=== PATIENT | female | born 1995 | race Caucasian/White ===

== ENCOUNTER 2017-08-29 18:10 | Emergency (ER) | payer OTHER ==
[2017-08-29 18:24] VITALS: BP 117/60
--- NOTE | 2017-08-29 19:36 | RADIOLOGY REPORT (SQ) ---
EXAM DESCRIPTION: HIP LEFT AP/LATERAL COMPLETED DATE/TIME: 08/29/2017 7:25 pm REASON FOR STUDY: Left hip pain, h/o prev surgery COMPARISON: None. NUMBER OF VIEWS: Two views. TECHNIQUE: AP pelvis and additional frog-leg view of the left hip. LIMITATIONS: None. FINDINGS: MINERALIZATION: Normal. LEFT HIP: No fracture or dislocation. No worrisome bone lesions. No contour deformity. No joint spa ce narrowing. RIGHT HIP: No fracture or dislocation. No worrisome bone lesions. PUBIS AND ISCHIUM: No fracture. PELVIS: No fracture. SACRUM: No fracture or dislocation. No worrisome bone lesions. LOWER LUMBAR SPINE: No fracture or dislocation. No worrisome bone lesions. No significant disc disea se. SOFT TISSUES: No findings. OTHER: No other significant finding. IMPRESSION: NEGATIVE STUDY OF THE LEFT HIP AND PELVIS. NO EXPLANATION FOR PAIN. TECHNICAL DOCUMENTATION: JOB ID: [id number] [employer]- All Rights Reserved
--- NOTE | 2017-08-29 19:49 | ER Document Report ---
HPI - HPI Pain Level: 4 Notes: Patient is a 22-year-old female with a history of hip flexor tendon surgery October 2016 who presents to the ED complaining of increased pain since June. Patient states that she was on limited duty until June when she went to full duty which is causing an increase in her pain. Patient has not noticed any bruising or swelling. She denies any recent injury. Patient states that any activity increases her pain. She has been using some hkkn-lgy-drqugil meds with minimal relief. She is still ambulatory. She is eating and drinking without difficulties. She is urinating normally and having normal bowel movements. Patient has not noticed any vaginal discharge/odor/bleeding. She denies any . Patient states that most of the pain is to the lateral hip proximally. No other concerns or complaints at this time. Denies any headache, fever, neck pain, URI, sore throat, chest pain, palpitations, syncope , cough, shortness of breath, wheeze, dyspnea, abdominal pain, nausea/vomiting/ diarrhea, urinary retention, dysuria, hematuria, back pain, loss of control of bowel or bladder, numbness/tingling, saddle anesthesia, muscle paralysis/ weakness, or rash. - ROS Systems Reviewed and Negative: Yes All other systems reviewed and negative Past Medical History - Social History Smoking Status: Never Smoker Family History: Reviewed & Not Pertinent Vertical Provider Document - CONSTITUTIONAL Agree With Documented VS: Yes Notes: PHYSICAL EXAMINATION: GENERAL: Well-appearing, well-nourished and in no acute distress. LUNGS: Breath sounds clear to auscultation bilaterally and equal. No wheezes rales or rhonchi. HEART: Regular rate and rhythm without murmurs, rubs, gallops. ABDOMEN: Soft, nontender, nondistended abdomen. No guarding, no rebound. No masses appreciated. Normal bowel sounds present. No CVA tenderness bilaterally. No pulsatile mass Musculoskeletal: LE's b/l: FROM to passive/active. Strength 5+/5. No deficits noted. No bony tenderness of extremities. + mild tenderness to the soft tissue hip flexor/abductor origin. No ecchymosis, deformity, erythema. Back: FROM to passive/active. Strength 5+/5. No vertebral point tenderness, stepoffs, or deformities. No other bony tenderness, erythema, swelling, or ecchymosis. SLR negative b/l. No SI jt tenderness. No foot drop Extremities: No cyanosis, clubbing, or edema b/l. Peripheral pulses 2+. Capillary refill less than 2 seconds. NEUROLOGICAL: Normal speech, normal gait. Normal sensory, motor exams. Reflexes 2+ b/l. PSYCH: Normal mood, normal affect. SKIN: Warm, Dry, normal turgor, no rashes or lesions noted. - INFECTION CONTROL TRAVEL OUTSIDE OF THE [place] IN LAST 30 DAYS: No - RESPIRATORY O2 Sat by Pulse Oximetry: 100 Course - Re-evaluation Re-evalutation: 08/29/17 19:47 Patient is an afebrile, well-hydrated, 22-year-old female who presents the ED with left hip pain, suspect muscle strain versus sprain. Vitals are stable. PE is otherwise unremarkable for any neurovascular compromise, obvious tendon/ ligament rupture, obvious fracture/dislocation, septic joint. X-ray was unremarkable for any acute pathology. Toradol given IM today. Recommend conservative measures for symptoms. Recheck with your PCM in 3-5 days. Consider consult with orthopedics/physical therapy. I will send her home with a prescription for naproxen and baclofen. Return to the ED with any worsening/ concerning symptoms otherwise as reviewed discharge. Patient is in agreement. - Vital Signs Vital signs: Temp Pulse Resp BP Pulse Ox 98.5 F 82 16 117/60 100 08/29/17 18:23 08/29/17 18:23 08/29/17 18:23 08/29/17 18:23 08/29/17 18:23 Discharge - Discharge Clinical Impression: Left hip pain Condition: Stable Disposition: HOME, SELF-CARE Instructions: Muscle Strain ([facility]), Muscle Relaxers ([facility]) Additional Instructions: Rest, Ice, Compression, Elevation Tylenol/ibuprofen as needed Light stretches daily Strength exercises as able Moist heat and massage may help F/u with your PCP in 3-5 days for a recheck Consider consult(s) with Orthopedics/physical therapy for ongoing/worsening symptoms Return to the ED with any worsening symptoms and/or development of fever, headache, chest pain, palpitations, syncope, shortness of breath, trouble breathing, abdominal pain, n/v/d, muscle weakness/paralysis, numbness/tingling, swelling, redness, or other worsening symptoms that are concerning to you. Prescriptions: Baclofen [Baclofen 10 mg Tablet] 5 - 10 mg PO BID PRN #10 tablet PRN Reason: Naproxen 500 mg PO BID PRN #30 tablet PRN Reason: Referrals: [facility] [Provider Group] - Follow up as needed
[2017-08-29] MEDS ORDERED: KETOROLAC TROMETHAMINE INJ/PF 30 MG/1 ML SDV IM ONE (19:50)
== END 2017-08-29 20:12 | disposition home or self-care (01) ==
LOC: ER 18:10
DX: M25.552 Pain in left hip (principal); Z98.890 Other specified postprocedural states
CPT/HCPCS: 99283; 96372; 73502; J1885

== ENCOUNTER 2018-01-30 19:19 | Emergency (ER) | payer OTHER ==
[2018-01-30] MEDS ORDERED: ONDANSETRON 4 MG TAB.RAPDIS PO ONE (19:36)
[2018-01-30] MEDS ORDERED: NORMAL SALINE 1000 ML 1,000 ML IV ONE ×2 (19:36→21:32)
--- NOTE | 2018-01-30 19:38 | ER Document Report ---
ED Medical Screen (RME) - General Chief Complaint: Nausea/Vomiting Stated Complaint: VOMITING Time Seen by Provider: 01/30/18 19:35 Mode of Arrival: Wheelchair Information source: Patient TRAVEL OUTSIDE OF THE [place] IN LAST 30 DAYS: No - HPI Patient complains to provider of: vomiting Onset: Other - pt is G1 approx 9 weeks who was recently released from [facility] for hyperemesis. Staters she has continued to vomit since d/c - Related Data Allergies/Adverse Reactions: amoxicillin Allergy (Verified 08/29/17 18:10) Past Medical History Renal/ Medical History: Denies: Hx Peritoneal Dialysis Past Surgical History: Reports: Hx Tonsillectomy Physical Exam - Vital signs Vitals: Temp Pulse Resp BP Pulse Ox 99.1 F 96 20 119/59 L 100 01/30/18 19:27 01/30/18 19:27 01/30/18 19:27 01/30/18 19:27 01/30/18 19:27 Course - Vital Signs Vital signs: Temp Pulse Resp BP Pulse Ox 99.1 F 96 20 119/59 L 100 01/30/18 19:27 01/30/18 19:27 01/30/18 19:27 01/30/18 19:27 01/30/18 19:27
[2018-01-30 20:16] LABS: ABSOLUTE LYMPHOCYTES (AUTO) 0.9 10^3/uL (0.5-4.7); ABSOLUTE MONOCYTES (AUTO) 0.4 10^3/uL (0.1-1.4); ABSOLUTE NEUT (AUTO) 12.2 10^3/uL (1.7-8.2); BASOPHILS % (AUTO) 0.3 % (0-2); EOSINOPHILS % (AUTO) 0.3 % (0-6); HEMATOCRIT 45.4 % (36.0-47.0); HEMOGLOBIN 15.2 g/dL (12.0-15.5); LYMPHOCYTES % (AUTO) 6.7 % (13-45); MEAN CORPUSCULAR HEMOGLOBIN 27.8 pg (27.0-33.4); MEAN CORPUSCULAR HGB CONC 33.6 g/dL (32.0-36.0); MEAN CORPUSCULAR VOLUME 83 fl (80-97); MONOCYTES % (AUTO) 3.2 % (3-13); PLATELET COUNT 283 10^3/uL (150-450); RED BLOOD COUNT 5.48 10^6/uL (3.72-5.28); RED CELL DISTRIBUTION WIDTH 13.7 % (11.5-14.0); SEGMENTED NEUTROPHILS % (AUTO) 89.5 % (42-78); TOTAL CELLS COUNTED % (AUTO) 100 %; WHITE BLOOD COUNT 13.6 10^3/uL (4.0-10.5)
[2018-01-30 20:26] LABS: ALANINE AMINOTRANSFERASE 29 U/L (9-52); ALBUMIN 4.7 g/dL (3.5-5.0); ALKALINE PHOSPHATASE 57 U/L (38-126); ANION GAP 16 (5-19); ASPARTATE AMINO TRANSFERASE 28 U/L (14-36); BILIRUBIN,DIRECT 0.3 mg/dL (0.0-0.4); BILIRUBIN,TOTAL 0.9 mg/dL (0.2-1.3); BLOOD UREA NITROGEN 10 mg/dL (7-20); CARBON DIOXIDE 23 mmol/L (22-30); CHLORIDE 101 mmol/L (98-107); GLUCOSE 83 mg/dL (75-110); POTASSIUM 4.4 mmol/L (3.6-5.0); SODIUM 139.9 mmol/L (137-145); TOTAL PROTEIN 8.3 g/dL (6.3-8.2)
[2018-01-30 21:22] LABS: APPEARANCE,URINE SLIGHTLY-CLOUDY; BILIRUBIN,URINE NEGATIVE (NEGATIVE); COLOR,URINE YELLOW; GLUCOSE, URINE NEGATIVE (NEGATIVE); KETONES,URINE 80 mg/dL (NEGATIVE); LEUKOCYTE ESTERASE,URINE NEGATIVE (NEGATIVE); NITRITE,URINE NEGATIVE (NEGATIVE); PROTEIN,URINE 100 mg/dL (NEGATIVE)
--- NOTE | 2018-01-30 21:41 | ER Document Report ---
ED General - General Chief Complaint: Nausea/Vomiting Stated Complaint: VOMITING Time Seen by Provider: 01/30/18 19:35 Mode of Arrival: Wheelchair Information source: Patient Notes: Patient is a 22-year-old female who presents with chief complaint of nausea and vomiting. Patient reports that she is 9 weeks and has been previously diagnosed with hyperemesis. Patient reports that she was discharged from a 3 day hospitalization at [facility] 2 days ago. Patient reports that her vomiting had subsided until this morning she reports vomiting 15-20 times today. Patient denies any other complaints, no vaginal bleeding or discharge no abdominal pain no back pain. Patient has not vomited since arrival to the emergency department and administration of 4 mg ODT Zofran. TRAVEL OUTSIDE OF THE [place] IN LAST 30 DAYS: No - Related Data Allergies/Adverse Reactions: amoxicillin Allergy (Verified 08/29/17 18:10) Past Medical History - General Information source: Patient - Social History Smoking Status: Never Smoker Chew tobacco use (# tins/day): No Frequency of alcohol use: None Drug Abuse: None Family History: Reviewed & Not Pertinent Patient has suicidal ideation: No Patient has homicidal ideation: No - Medical History Medical History: Negative Renal/ Medical History: Denies: Hx Peritoneal Dialysis Past Surgical History: Reports: Hx Tonsillectomy - Immunizations Immunizations up to date: Yes Hx Diphtheria, Pertussis, Tetanus Vaccination: Yes Review of Systems - Review of Systems Constitutional: No symptoms reported EENT: No symptoms reported Cardiovascular: No symptoms reported Respiratory: No symptoms reported Gastrointestinal: See HPI Genitourinary: No symptoms reported Female Genitourinary: No symptoms reported Musculoskeletal: No symptoms reported Skin: No symptoms reported Hematologic/Lymphatic: No symptoms reported Neurological/Psychological: No symptoms reported Physical Exam - Vital signs Vitals: Temp Pulse Resp BP Pulse Ox 99.1 F 96 20 119/59 L 100 01/30/18 19:27 01/30/18 19:27 01/30/18 19:27 01/30/18 19:27 01/30/18 19:27 - Notes Notes: PHYSICAL EXAMINATION: GENERAL: Well-appearing, well-nourished and in no acute distress. HEAD: Atraumatic, normocephalic. EYES: Pupils equal round and reactive to light, extraocular movements intact, conjunctiva are normal. ENT: Nares patent, oropharynx clear without exudates. Moist mucous membranes. NECK: Normal range of motion, supple without lymphadenopathy LUNGS: Breath sounds clear to auscultation bilaterally and equal. No wheezes rales or rhonchi. HEART: Regular rate and rhythm without murmurs ABDOMEN: Soft, nontender, nondistended abdomen. No guarding, no rebound. No masses appreciated. Female : No CVA tenderness. Musculoskeletal: Normal range of motion, no pitting or edema. No cyanosis. NEUROLOGICAL: Cranial nerves grossly intact. Normal speech, normal gait. Normal sensory, motor exams PSYCH: Normal mood, normal affect. SKIN: Warm, Dry, normal turgor, no rashes or lesions noted. Course - Re-evaluation Re-evalutation: Patient is an otherwise healthy 22-year-old female who presents with chief complaint of nausea and vomiting. Patient is 9 weeks according to her dates and reports that she has been diagnosed with hyperemesis gravidarum. Patient was initially seen by provider in triage who provided patient with 4 mg ODT Zofran, 1 L normal saline bolus and ordered lab work. CBC reveals a white blood count 13.6 with a left shift, neutrophils are 89.5, this is consistent with her complaint of multiple episodes of vomiting today. CMP is within normal limits. Urinalysis with ketones and protein. Will order an additional 1 L bolus. Patient reports that she is feeling somewhat better after the 2 L of normal saline. Patient has not vomited since arrival to the department. Patient will be discharged home with a prescription for Phenergan suppositories. Patient will have follow-up with her DRAMA THERAPIST early next week. - Vital Signs Vital signs: Temp Pulse Resp BP Pulse Ox 99.1 F 96 20 119/59 L 100 01/30/18 19:27 01/30/18 19:27 01/30/18 19:27 01/30/18 19:27 01/30/18 19:27 - Laboratory Result Diagrams: 01/30/18 19:55 01/30/18 19:55 Laboratory results interpreted by me: 01/30/18 01/30/18 01/30/18 19:55 19:55 20:04 WBC 13.6 H RBC 5.48 H Seg Neutrophils % 89.5 H Lymphocytes % 6.7 L Absolute Neutrophils 12.2 H Total Protein 8.3 H Beta HCG, Quant 079906.00 H Urine Protein 100 H Urine Ketones 80 H Urine Urobilinogen 2.0 H Discharge - Discharge Clinical Impression: Vomiting Qualifiers: Vomiting type: unspecified Vomiting Intractability: unspecified Nausea presence : with nausea Qualified Code(s): R11.2 - Nausea with vomiting, unspecified Additional Instructions: Hyperemesis Gravidarum Hyperemesis gravidarum is the medical term for severe vomiting during . We don't know exactly why it occurs, but it's a common problem. Dehydration can occur. This reduces blood flow to the placenta, decreasing the baby's nourishment. The baby will also become dehydrated. There can be harmful changes in blood sodium, potassium, or acid balance. Our goal is to correct, and prevent, dehydration. For severe cases, we give IV fluids. Antinausea medication will be prescribed. (Don't be concerned about " defects" -- the risk to you and your baby from the hyperemesis is the biggest problem. The antinausea medication is very safe at this stage of .) Call the doctor if you have vaginal bleeding, abdominal pain, severe lightheadedness or weakness, or other alarming symptoms. Please follow-up with your DRAMA THERAPIST provider, call Friday for an appointment. Please take medications as prescribed. Return to the emergency department if you are unable to control your vomiting with the medications that you have at home (zofran) or the Phenergan suppositories I am prescribing to you. Prescriptions: Promethazine HCl [Phenergan 25 mg Supp.rect] 1 supp NE Q6H #12 supp.rect
[2018-01-30] MEDS ORDERED: PROMETHAZINE HCL 25 MG SUPP.RECT PR ONE (23:43)
[2018-01-31 03:30] VITALS: BP 108/59
== END 2018-01-31 00:07 | disposition home or self-care (01) ==
LOC: ER 19:19
DX: O21.0 Mild hyperemesis gravidarum (principal); Z3A.09 9 weeks gestation of pregnancy
CPT/HCPCS: 99283; 96360; 96361; 36415; 84702; 85025; 80053; 81001; S0119; J3490; J7030

== ENCOUNTER 2018-02-04 16:17 | Emergency (ER) | payer OTHER ==
[2018-02-04] MEDS ORDERED: ONDANSETRON 4 MG TAB.RAPDIS SL ONE (17:43)
[2018-02-04] MEDS ORDERED: FAMOTIDINE 20 MG TABLET PO ONE (17:44)
[2018-02-04] MEDS ORDERED: NORMAL SALINE 1000 ML 1,000 ML IV ONE ×2 (17:44→18:32)
[2018-02-04] MEDS ORDERED: METOCLOPRAMIDE HCL INJ/PF 10 MG/2 ML SDV IV ONE (17:44)
--- NOTE | 2018-02-04 17:49 | ER Document Report ---
ED Medical Screen (RME) - General Chief Complaint: Nausea/Vomiting Stated Complaint: VOMITING BLOOD Time Seen by Provider: 02/04/18 17:34 TRAVEL OUTSIDE OF THE [place] IN LAST 30 DAYS: No - HPI Patient complains to provider of: Nausea and vomiting Notes: 02/04/18 17:48 Patient is a 22-year-old female who is currently approximately 10 weeks , presenting to the emergency room for nausea and vomiting with epigastric abdominal pain that has been going on over the past 7 weeks, states she vomited up a small amount of blood today as well - Related Data Allergies/Adverse Reactions: amoxicillin Allergy (Verified 02/04/18 16:24) Past Medical History - Social History Chew tobacco use (# tins/day): No Frequency of alcohol use: None Drug Abuse: None Renal/ Medical History: Denies: Hx Peritoneal Dialysis Past Surgical History: Reports: Hx Orthopedic Surgery - right arm, left hip, Hx Tonsillectomy - Immunizations Immunizations up to date: Yes Hx Diphtheria, Pertussis, Tetanus Vaccination: Yes Physical Exam - Vital signs Vitals: Temp Pulse Resp BP Pulse Ox 98.3 F 95 16 117/77 100 02/04/18 16:32 02/04/18 16:32 02/04/18 16:32 02/04/18 16:32 02/04/18 16:32 Course - Vital Signs Vital signs: Temp Pulse Resp BP Pulse Ox 98.3 F 95 16 117/77 100 02/04/18 16:32 02/04/18 16:32 02/04/18 16:32 02/04/18 16:32 02/04/18 16:32
[2018-02-04 18:23] LABS: HEMATOCRIT 46.2 % (36.0-47.0); HEMOGLOBIN 15.9 g/dL (12.0-15.5); MEAN CORPUSCULAR HEMOGLOBIN 28.8 pg (27.0-33.4); MEAN CORPUSCULAR HGB CONC 34.4 g/dL (32.0-36.0); MEAN CORPUSCULAR VOLUME 84 fl (80-97); PLATELET COUNT 326 10^3/uL (150-450); RED BLOOD COUNT 5.52 10^6/uL (3.72-5.28); RED CELL DISTRIBUTION WIDTH 13.9 % (11.5-14.0); WHITE BLOOD COUNT 20.2 10^3/uL (4.0-10.5)
[2018-02-04 18:26] LABS: INTERNATIONAL RATION (INR) 0.96; PROTHROMBIN TIME 13.3 SEC (11.4-15.4)
[2018-02-04 18:27] LABS: PARTIAL THROMBOPLASTIN TIME 27.5 SEC (23.5-35.8)
[2018-02-04 18:39] LABS: ALANINE AMINOTRANSFERASE 22 U/L (9-52); ALBUMIN 4.9 g/dL (3.5-5.0); ALKALINE PHOSPHATASE 70 U/L (38-126); ASPARTATE AMINO TRANSFERASE 20 U/L (14-36); BILIRUBIN,DIRECT 0.4 mg/dL (0.0-0.4); BILIRUBIN,TOTAL 1.1 mg/dL (0.2-1.3); BLOOD UREA NITROGEN 14 mg/dL (7-20); CALCIUM 10.1 mg/dL (8.4-10.2); GLUCOSE 88 mg/dL (75-110); LIPASE 80.4 U/L (23-300); POTASSIUM 4.2 mmol/L (3.6-5.0); TOTAL PROTEIN 8.5 g/dL (6.3-8.2)
[2018-02-04 18:44] LABS: CARBON DIOXIDE 15 mmol/L (22-30); CHLORIDE 102 mmol/L (98-107); SODIUM 141.1 mmol/L (137-145)
[2018-02-04 18:46] LABS: ANION GAP 24 (5-19)
[2018-02-04 19:03] LABS: ABSOLUTE LYMPHOCYTES# (MANUAL) 0.2 10^3/uL (0.5-4.7); ABSOLUTE MONOCYTES # (MANUAL) 0.6 10^3/uL (0.1-1.4); ABSOLUTE NEUTROPHILS# (MANUAL) 19.4 10^3/uL (1.7-8.2); BASOPHILS % (MANUAL) 0 % (0-2); EOSINOPHILS % (MANUAL) 0 % (0-6); LYMPHOCYTES % (MANUAL) 1 % (13-45); MONOCYTES % (MANUAL) 3 % (3-13); SEGMENTED NEUTROPHILS % (MAN) 96 % (42-78); TOTAL CELLS COUNTED 100
[2018-02-04 19:06] LABS: PLATELET COMMENT ADEQUATE; PLATELET LARGE PRESENT
[2018-02-04 19:07] LABS: POIKILOCYTOSIS SLIGHT; TEAR DROP CELLS SLIGHT
[2018-02-04 20:19] LABS: APPEARANCE,URINE CLEAR; BILIRUBIN,URINE NEGATIVE (NEGATIVE); COLOR,URINE YELLOW; GLUCOSE, URINE NEGATIVE (NEGATIVE); KETONES,URINE 80 mg/dL (NEGATIVE); LEUKOCYTE ESTERASE,URINE NEGATIVE (NEGATIVE); NITRITE,URINE NEGATIVE (NEGATIVE); PROTEIN,URINE 30 mg/dL (NEGATIVE); URINE SPECIFIC GRAVITY 1.025; UROBILINOGEN,URINE NEGATIVE mg/dL (<2.0)
[2018-02-04 20:30] LABS: URINE AMPHETAMINES SCREEN NEGATIVE; URINE BARBITURATES SCREEN NEGATIVE; URINE BENZODIAZEPINES SCREEN NEGATIVE; URINE COCAINE SCREEN NEGATIVE; URINE MARIJUANA (THC) SCREEN NEGATIVE; URINE METHADONE SCREEN NEGATIVE; URINE PHENCYCLIDINE SCREEN NEGATIVE
[2018-02-04] MEDS ORDERED: DIPHENHYDRAMINE HCL 50 MG/ML VIAL IV ONE (21:08)
--- NOTE | 2018-02-04 22:46 | ER Document Report ---
ED General - General Chief Complaint: Nausea/Vomiting Stated Complaint: VOMITING BLOOD Time Seen by Provider: 02/04/18 17:34 TRAVEL OUTSIDE OF THE [place] IN LAST 30 DAYS: No - HPI Patient complains to provider of: Nausea vomiting Notes: Patient coming in today for nausea vomiting . Patient is a states multiple bouts of nausea vomiting unable to hold anything down. Patient states small amount of blood and her emesis last time she vomited. Patient with a recent admission to [facility] for hyperemesis gravidarum. Patient states she has continued to take medications prescribed to her by her OB /GENERATOR OPERATOR including but not limited to the Phenergan Unisom and B6 t Reglan with no relief for her symptoms today. Patient upon my evaluation resting comfortably looks mildly dehydrated otherwise no signs of any extremis. Patient denies any bleeding denies any abdominal pain or abdominal cramping. Denies any other past medical issues. - Related Data Allergies/Adverse Reactions: amoxicillin Allergy (Verified 02/04/18 16:24) Past Medical History - Social History Smoking Status: Unknown if Ever Smoked Chew tobacco use (# tins/day): No Frequency of alcohol use: None Drug Abuse: None Family History: Reviewed & Not Pertinent Patient has suicidal ideation: No Patient has homicidal ideation: No Renal/ Medical History: Denies: Hx Peritoneal Dialysis Past Surgical History: Reports: Hx Orthopedic Surgery - right arm, left hip, Hx Tonsillectomy - Immunizations Immunizations up to date: Yes Hx Diphtheria, Pertussis, Tetanus Vaccination: Yes Review of Systems - Review of Systems Constitutional: No symptoms reported EENT: No symptoms reported Cardiovascular: No symptoms reported Respiratory: No symptoms reported Gastrointestinal: Nausea, Vomiting Genitourinary: No symptoms reported Female Genitourinary: No symptoms reported Musculoskeletal: No symptoms reported Skin: No symptoms reported Hematologic/Lymphatic: No symptoms reported Neurological/Psychological: No symptoms reported -: Yes All other systems reviewed and negative Physical Exam - Vital signs Vitals: Temp Pulse Resp BP Pulse Ox 98.3 F 95 16 117/77 100 02/04/18 16:32 02/04/18 16:32 02/04/18 16:32 02/04/18 16:32 02/04/18 16:32 Interpretation: Normal - General General appearance: Appears well, Alert - HEENT Head: Normocephalic, Atraumatic Eyes: Normal Pupils: PERRL - Respiratory Respiratory status: No respiratory distress Chest status: Nontender Breath sounds: Normal Chest palpation: Normal - Cardiovascular Rhythm: Regular Heart sounds: Normal auscultation Murmur: No - Abdominal Inspection: Normal Distension: No distension Bowel sounds: Normal Tenderness: Nontender Organomegaly: No organomegaly - Back Back: Normal, Nontender - Extremities General upper extremity: Normal inspection, Nontender, Normal color, Normal ROM , Normal temperature General lower extremity: Normal inspection, Nontender, Normal color, Normal ROM , Normal temperature, Normal weight bearing. No: Ron's sign - Neurological Neuro grossly intact: Yes Cognition: Normal Orientation: AAOx4 [place] Coma Scale Eye Opening: Spontaneous [place] Coma Scale Verbal: Oriented [place] Coma Scale Motor: Obeys Commands [place] Coma Scale Total: 15 Speech: Normal Motor strength normal: LUE, RUE, LLE, RLE Sensory: Normal - Psychological Associated symptoms: Normal affect, Normal mood - Skin Skin Temperature: Warm Skin Moisture: Dry Skin Color: Normal Course - Re-evaluation Re-evalutation: 02/04/18 23:29 Bedside ultrasound shows heart tones at 167. With positive motion. Patient was given antiemetics here along with a small dose of Benadryl and able to tolerate crackers and ice chips along with some fluids. Laboratories show significant dehydration patient received 2 L of fluid total. Otherwise patient was given education material in her discharge packet about different medications and ways to treat nausea vomiting in . At this time with patient tolerating orals do believe that she can be discharged home. - Vital Signs Vital signs: Temp Pulse Resp BP Pulse Ox 98.3 F 95 19 99/72 L 100 02/04/18 16:32 02/04/18 16:32 02/04/18 23:08 02/04/18 23:08 02/04/18 23:08 - Laboratory Result Diagrams: 02/04/18 18:00 02/04/18 18:00 Laboratory results interpreted by me: 02/04/18 02/04/18 02/04/18 17:18 18:00 18:00 WBC 20.2 H RBC 5.52 H Hgb 15.9 H Seg Neuts % (Manual) 96 H Lymphocytes % (Manual) 1 L Abs Neuts (Manual) 19.4 H Abs Lymphs (Manual) 0.2 L Carbon Dioxide 15 L Anion Gap 24 H Total Protein 8.5 H Urine Protein 30 H Urine Ketones 80 H Urine HCG, Qual POSITIVE H Discharge - Discharge Clinical Impression: Nausea and vomiting during , Dehydration Condition: Good Disposition: HOME, SELF-CARE Instructions: Nausea or Vomiting, Nonspecific ([facility]), ([facility]) Additional Instructions: For nausea and vomiting during I recomment: Start with 10-12.5 mg of pyridoxine (vitamin B6) three times a day for 2 days. If not fully effective, Increase to 12.5 mg of pyridoxine four times a day for 2 days. If not fully effective, Increase to 25 mg of pyridoxine three times a day for 2 days. If not fully effective, Continue 25 mg pyridoxine 3 times a day, and add 12.5 mg of doxylamine before bedtime each day for 2 days. If not fully effective, Continue 25 mg pyridoxine 3 times a day, and take 12.5 mg of doxylamine twice a day. If not fully effective, Continue 25 mg pyridoxine 3 times a day, and take 12.5 mg of doxylamine three times a day. If not fully effective, Continue 25 mg pyridoxine 3 times a day, and 12.5 mg of doxylamine 3 times a day , while adding Emetrol, one to two tablespoons (15-30 cc) taken once or twice a day as needed. (Emetrol is an [id number] mixture of sugar syrups and phosphoric acid [phosphorylated carbohydrate solution]) that acts by soothing the actual wall of the gastrointestinal tract). If not fully effective, Consult with your doctor. I would recommend trying to take small meals earlier in the morning before you get out of bed to help out with your nausea vomiting. Please follow-up with your NAUMKEAG OPERATOR. Prescriptions: Metoclopramide HCl [Reglan] 5 mg PO Q6 #30 tablet Forms: Return to Work
[2018-02-04 23:17] VITALS: BP 99/72
== END 2018-02-04 23:17 | disposition home or self-care (01) ==
LOC: ER 16:17
DX: O21.9 Vomiting of pregnancy, unspecified (principal); E86.0 Dehydration; Z88.0 Allergy status to penicillin
CPT/HCPCS: 99284; 36415; 83690; 85025; 85610; 85730; 81025; 80053; 81001; 80307; J1200; J2765; J7030

== ENCOUNTER 2019-08-02 11:45 | Emergency (ER) | payer OTHER ==
[2019-08-02] MEDS ORDERED: PROCHLORPERAZINE EDISYLATE INJ 10 MG/2 ML VIAL IV ONE (11:57)
[2019-08-02] MEDS ORDERED: KETOROLAC TROMETHAMINE INJ/PF 30 MG/1 ML SDV IV ONE (11:57)
[2019-08-02] MEDS ORDERED: DIPHENHYDRAMINE HCL 50 MG/ML VIAL IV ONE (11:57)
[2019-08-02] MEDS ORDERED: NORMAL SALINE 1000 ML 1,000 ML IV ONE (11:58)
--- NOTE | 2019-08-02 11:59 | ER Document Report ---
ED Medical Screen (RME) - General Chief Complaint: Headache Stated Complaint: HEADACHE,VOMITING Time Seen by Provider: 08/02/19 11:57 TRAVEL OUTSIDE OF THE [place] IN LAST 30 DAYS: No - HPI Notes: 08/02/19 11:58 Patient is a 24-year-old female with a history of migraines who presents complaining of migraine headache for the past 3 days with light sensitivity and nausea/vomiting. This headache did not start as a thunderclap. No fever. No chest pain or shortness of breath. I have treated and performed a rapid initial assessment of this patient. A comprehensive ED assessment and evaluation of the patient, analysis of test results and completion of medical decision making process will be conducted by additional ED providers. PHYSICAL EXAMINATION: GENERAL: Well-appearing, well-nourished and in no acute distress. A&Ox4. Answers questions appropriately. Neuro: Cranial nerves grossly intact, NIH 0, GCS 15. - Related Data Allergies/Adverse Reactions: amoxicillin Allergy (Verified 02/04/18 16:24) Past Medical History Renal/ Medical History: Denies: Hx Peritoneal Dialysis Past Surgical History: Reports: Hx Orthopedic Surgery - right arm, left hip, Hx Tonsillectomy - Immunizations Immunizations up to date: Yes Hx Diphtheria, Pertussis, Tetanus Vaccination: Yes Physical Exam - Vital signs Vitals: Temp Pulse Resp BP Pulse Ox 98.6 F 86 16 119/68 100 08/02/19 11:55 08/02/19 11:55 08/02/19 11:55 08/02/19 11:55 08/02/19 11:55 Course - Vital Signs Vital signs: Temp Pulse Resp BP Pulse Ox 98.6 F 86 16 119/68 100 08/02/19 11:55 08/02/19 11:55 08/02/19 11:55 08/02/19 11:55 08/02/19 11:55
--- NOTE | 2019-08-02 14:40 | ER Document Report ---
Entered by EFFIE MCCLAIN SCRIBE 08/02/19 1325 Acting as scribe for:TERE SHERWOOD MD ED Headache - General Chief Complaint: Headache Stated Complaint: HEADACHE,VOMITING Time Seen by Provider: 08/02/19 11:57 Mode of Arrival: Ambulatory Information source: Patient Notes: This 24 year old female patient with a history of migraines presents to the ED today with complaints of a migraine headache that began x3 days ago. Patient indicates that the pain is localized to the frontal region of her head. Patient reports associated nausea and vomiting. Patient notes that she received a flu shot this year. TRAVEL OUTSIDE OF THE [place] IN LAST 30 DAYS: No - Related Data Allergies/Adverse Reactions: amoxicillin Allergy (Verified 02/04/18 16:24) Past Medical History - General Information source: Patient - Social History Smoking Status: Never Smoker Cigarette use (# per day): No Chew tobacco use (# tins/day): No Smoking Education Provided: No Frequency of alcohol use: None Drug Abuse: None Family History: Reviewed & Not Pertinent Patient has suicidal ideation: No Patient has homicidal ideation: No Neurological Medical History: Reports: Hx Migraine Past Surgical History: Reports: Hx Orthopedic Surgery - right arm, left hip, Hx Tonsillectomy - Immunizations Immunizations up to date: Yes Hx Diphtheria, Pertussis, Tetanus Vaccination: Yes Review of Systems - Review of Systems Constitutional: No symptoms reported EENT: No symptoms reported Cardiovascular: No symptoms reported Respiratory: No symptoms reported Gastrointestinal: See HPI, Nausea, Vomiting Genitourinary: No symptoms reported Female Genitourinary: No symptoms reported Musculoskeletal: No symptoms reported Skin: No symptoms reported Hematologic/Lymphatic: No symptoms reported Neurological/Psychological: See HPI, Headaches -: Yes All other systems reviewed and negative Physical Exam - Vital signs Vitals: Temp Pulse Resp BP Pulse Ox 98.6 F 86 16 119/68 100 08/02/19 11:55 08/02/19 11:55 08/02/19 11:55 08/02/19 11:55 08/02/19 11:55 Interpretation: Normal - General General appearance: Alert - HEENT Head: Atraumatic, Tenderness - Scalp and temporal musculature tenderness with palpation Eyes: Normal Pupils: PERRL Neck: Other - Posterior cervical musculature tenderness with palpation - Respiratory Respiratory status: No respiratory distress Chest status: Nontender Breath sounds: Normal Chest palpation: Normal - Cardiovascular Rhythm: Regular Heart sounds: Normal auscultation Murmur: No - Abdominal Inspection: Normal Distension: No distension Bowel sounds: Normal Tenderness: Nontender Organomegaly: No organomegaly - Back Back: Normal, Nontender - Extremities General upper extremity: Normal inspection General lower extremity: Normal inspection - Neurological Neuro grossly intact: Yes - Psychological Associated symptoms: Normal affect, Normal mood - Skin Skin Temperature: Warm Skin Moisture: Dry Skin Color: Normal Course - Re-evaluation Re-evalutation: 08/02/19 15:29 Patient reports her headache is much better and she feels comfortable going home at this time. - Vital Signs Vital signs: Temp Pulse Resp BP Pulse Ox 98.6 F 86 16 119/68 100 08/02/19 11:55 08/02/19 11:55 08/02/19 11:55 08/02/19 11:55 08/02/19 11:55 Discharge - Discharge Clinical Impression: Headache Qualifiers: Headache type: tension-type Headache chronicity pattern: acute headache Intractability: not intractable Qualified Code(s): G44.209 - Tension-type headache, unspecified, not intractable Condition: Stable Disposition: HOME, SELF-CARE Additional Instructions: Headache The physician does not feel that the headache you are experiencing has a serious underlying cause. Most headaches are due to emotional stress, with resultant muscle tension (tension headache). Occasionally, headaches are secondary to changes in the blood vessels of the scalp (vascular headache and migraine headache). Sometimes, a headache is the first symptom of another developing illness, such as a viral infection. You have no evidence of stroke, bleeding, meningitis, or other serious cause of your headache. The treatment of headaches varies with the severity and cause of the pain. Not all headaches need pain shots. In fact, there is evidence that using narcotics for headaches may make them worse in the long run. The physician will determine the therapy that's in your best interest. If you develop a fever, if the headache is different from any you've previously experienced, or if the headache progressively worsens, then call your physician at once or go to the emergency room. Follow-up with your primary care provider this week if not improving. RETURN TO THE EMERGENCY ROOM IF ANY NEW OR WORSENING SYMPTOMS. Scribe Attestation: 08/02/19 15:29 I personally performed the services described in the documentation, reviewed and edited the documentation which was dictated to the scribe in my presence, and it accurately records my words and actions. I personally performed the services described in the documentation, reviewed and edited the documentation which was dictated to the scribe in my presence, and it accurately records my words and actions.
[2019-08-02 15:42] VITALS: BP 113/64
== END 2019-08-02 15:34 | disposition home or self-care (01) ==
LOC: ER 11:45
DX: G44.209 Tension-type headache, unspecified, not intractable (principal); R11.2 Nausea with vomiting, unspecified
CPT/HCPCS: 99284; 96361; 96374; 96375; 81025; J1200; J1885; J0780; J7030